=== PATIENT | male | born 1965 | race Caucasian/White ===

== ENCOUNTER 2019-04-14 19:29 | Emergency (ER) | payer BC ==
[~2019-04-14] VITALS: Ht 182.9 cm; Wt 126.6 kg
[2019-04-14 22:04] LABS: Basophils # (auto) 0.1 uL; Basophils % (auto) 0.7 % (0.0-2.0); Eosinophils # (auto) 0.5 uL; Eosinophils % (auto) 5.5 % (0.0-7.0); Hematocrit 40.8 % (41.0-53.0); Hemoglobin 13.8 g/dL (13.5-17.5); Lymphocytes # (auto) 1.4 uL; Lymphocytes % (auto) 15.3 % (10.0-50.0); Mean Corpuscular Hemoglobin 30.6 pg (28.0-32.0); Mean Corpuscular Hgb Conc. 33.9 g/dL (32.0-36.0); Mean Corpuscular Volume 90.2 fL (80.0-100.0); Monocytes # (auto) 0.9 uL; Monocytes % (auto) 10.1 % (0.0-12.0); Neutrophils # (auto) 6.2 uL; Neutrophils % (auto) 68.4 % (37.0-80.0); Platelet Count (auto) 191 10^3/uL (140-450); Red Blood Cells 4.52 10^6/uL (4.5-5.90); Red Cell Distribution Width 13.9 % (11.8-14.3)
[2019-04-14 22:19] LABS: INR 1.08 (0.9-1.15); Partial Thromboplastin Time 27.1 sec (23.64-32.05)
[2019-04-14 22:23] LABS: Albumin 3.7 g/dL (3.4-5.0); BUN/Creatinine Ratio 17.8; Calcium 8.7 mg/dL (8.5-10.1); Potassium 3.7 mmol/L (3.5-5.1)
[2019-04-14 22:26] LABS: Bilirubin, Total 0.5 mg/dL (0.2-1.0)
[2019-04-15 00:32] VITALS: BP 126/82
[2019-04-15] MEDS ORDERED: traMADol HCL 50 MG TAB ONE (00:50)
[2019-04-15] MEDS ORDERED: traMADol HCL 50 MG TAB PO ONE (01:00)
== END 2019-04-15 00:58 | disposition home or self-care (01) ==
LOC: ER 19:34
DX: S70.12XA Contusion of left thigh, initial encounter (principal); I10 Essential (primary) hypertension; E78.5 Hyperlipidemia, unspecified; X58.XXXA Exposure to other specified factors, initial encounter; Y93.89 Activity, other specified; Y92.89 Other specified places as the place of occurrence of the external cause; Y99.8 Other external cause status
CPT/HCPCS: 36415; 80053; 85025; 85610; 85730; 93971